=== PATIENT | female | born 1975 | race Caucasian/White ===

== ENCOUNTER 2024-04-27 10:01 | Outpatient (CLI) | payer OTHER | END 2024-04-27 10:02 | disposition home or self-care (01) | LOC: CSHMAMMO 10:01 | PROVIDERS: ATTEND Family Medicine | DX: Z12.31 Encounter for screening mammogram for malignant neoplasm of breast (principal); N64.89 Other specified disorders of breast; Z91.89 Other specified personal risk factors, not elsewhere classified | CPT/HCPCS: 77063; 77067 ==

== ENCOUNTER 2024-04-30 08:18 | Outpatient (CLI) | payer OTHER | END 2024-04-30 08:19 | disposition home or self-care (01) | LOC: CSHMAMMO 08:18 | PROVIDERS: ATTEND Family Medicine | DX: N64.89 Other specified disorders of breast (principal) | CPT/HCPCS: G0279 ==

== ENCOUNTER 2025-06-07 12:41 | Outpatient (CLI) | payer OTHER | END 2025-06-07 12:42 | disposition home or self-care (01) | LOC: CSHMAMMO 12:41 | PROVIDERS: ATTEND Family Medicine | DX: Z12.31 Encounter for screening mammogram for malignant neoplasm of breast (principal); Z91.89 Other specified personal risk factors, not elsewhere classified | CPT/HCPCS: 77063; 77067 ==